=== PATIENT | male | born 1995 | race Caucasian/White ===

== ENCOUNTER → 2021-05-07 | Outpatient (CLI) | payer OTHER ==
--- NOTE | 2021-05-07 11:20 | KCIC ---
AP and Lateral Views of the Chest 05/07/2021 9:57 AM Indication: Reason: Dyspnea, tightness in chest 1 month. / Spl. Instructions: Negative Covid test. / History: Comparison: None Findings: There is no focal consolidation or infiltrate identified. The cardiomediastinal silhouette is within normal limits. There is no evidence of pneumothorax or pleural effusion. No acute osseous a bnormalities are identified. Impression: No evidence of acute cardiopulmonary process. Electronically signed by: Emeterio Magana MD (05/07/2021 11:18 AM) [id number]
== END ==
LOC: KCIC 09:55
PROVIDERS: ATTEND Nurse Practitioner
DX: R06.00 Dyspnea, unspecified (principal); R07.89 Other chest pain; Z20.822 Contact with and (suspected) exposure to COVID-19
CPT/HCPCS: 71046